=== PATIENT | female | born 1940 | race Caucasian/White ===

== ENCOUNTER 2023-11-20 17:54 | Observation (INO) | payer OTHER ==
[2023-11-20 18:04] VITALS: BMI 21.7
[2023-11-20] MEDS ORDERED: ACETAMINOPHEN INJECTION 100 ML IVPB ONE (19:56)
[2023-11-20] MEDS: ACETAMINOPHEN 1000 MG/100 ML BAG IVPB ONE (20:09)
[2023-11-20 20:23] LABS: BASO % 0.7 % (0-2.0); EOS % 0.7 % (0-4.5); HEMOGLOBIN 11.1 GM/dL (10.7-15.3); LYMPH % 18.7 % (8-40); MCH 27.7 pg (25.7-33.7); MCHC 33.6 g/dl (32.0-36.0); MEAN CELL VOLUME 82.6 fl (80-96); MEAN PLT VOLUME 6.8 fl (7.5-11.1); MONO % 13.5 % (3.8-10.2); NEUT % 66.4 % (42.8-82.8); PLATELET COUNT 311 10^3/uL (134-434); RDW 16.4 % (11.6-15.6); WHITE BLOOD COUNT 7.9 K/mm3 (4.0-10.0)
[2023-11-20 20:31] LABS: INR 1.12 (0.83-1.09); PROTHROMBIN TIME (PATIENT) 12.6 SEC (9.7-13.0)
[2023-11-20 20:33] LABS: ACTIVATED PTT 30.1 SECONDS (25.2-36.5)
[2023-11-20 20:42] LABS: ALBUMIN 2.9 g/dl (3.4-5.0); CALCIUM 8.8 mg/dL (8.5-10.1)
[2023-11-20 20:43] LABS: BLOOD UREA NITROGEN 21.2 mg/dL (7-18)
[2023-11-20 20:45] LABS: CREATININE 0.9 mg/dL (0.55-1.3)
[2023-11-20 20:47] LABS: BILIRUBIN,TOTAL 0.8 mg/dL (0.2-1); TOT PROT 6.6 g/dl (6.4-8.2)
[2023-11-20 22:12] LABS: ERYTHROCYTE SEDIMENTATION RATE 93 mm/hr (0-30)
[2023-11-20] MEDS ORDERED: LIDOCAINE HCL 1%, 10 MG/ML (20ML VIAL) ONE (22:28)
[2023-11-20] MEDS: LIDOCAINE HCL 1%, 10 MG/ML (50 mL VIAL) SQ ONE (22:35)
[2023-11-21 00:01] LABS: BF WBC & OTHER NUCLEATED CELLS 3976 /mm3
[2023-11-21 00:46] LABS: BODY FLUID MONOCYTE 12 %
[2023-11-21 00:48] LABS: CRYSTALS,SYNOVIAL FLUID NEGATIVE
[2023-11-21] MEDS ORDERED: PATIENT'S OWN MEDICATION (NON-FORMULARY) (Valsartan/Hydrochlorothiazide [Valsartan-Hctz 80 PO SCH (03:24)
[2023-11-21] MEDS: VALSARTAN 80 MG TABLET PO SCH (05:36)
[2023-11-21] MEDS: HYDROCHLOROTHIAZIDE 12.5 MG CAPSULE (FP) PO SCH (05:36)
[2023-11-21] MEDS: amLODIPine BESYLATE 5 MG TABLET (FP) PO ONE (05:37)
[2023-11-21] MEDS: CARBIDOPA/LEVODOPA 25/100 TABLET (FP) PO SCH (05:37)
[2023-11-21 08:35] LABS: HEMATOCRIT 34.4 % (32.4-45.2); HEMOGLOBIN 11.5 GM/dL (10.7-15.3); MCH 27.7 pg (25.7-33.7); MCHC 33.3 g/dl (32.0-36.0); MEAN CELL VOLUME 83.2 fl (80-96); MEAN PLT VOLUME 7.1 fl (7.5-11.1); PLATELET COUNT 333 10^3/uL (134-434); RBC 4.13 M/mm3 (3.60-5.2); WHITE BLOOD COUNT 6.4 K/mm3 (4.0-10.0)
[2023-11-21 08:54] LABS: CHLORIDE 100 mmol/L (98-107); POTASSIUM 3.3 mmol/L (3.5-5.1); SODIUM 139 mmol/L (136-145)
[2023-11-21 09:07] LABS: ALBUMIN 3.1 g/dl (3.4-5.0); ANION GAP 9 mmol/L (4-13); CALCIUM 9.1 mg/dL (8.5-10.1); CO2 30 mmol/L (21-32); GLUCOSE,RANDOM 93 mg/dL (74-106); MAGNESIUM 2.4 mg/dL (1.8-2.4)
[2023-11-21 09:08] LABS: BLOOD UREA NITROGEN 15.8 mg/dL (7-18)
[2023-11-21 09:10] LABS: CREATININE 0.8 mg/dL (0.55-1.3)
[2023-11-21 09:11] LABS: SGOT/AST 21 U/L (15-37)
[2023-11-21 09:12] LABS: BILIRUBIN,TOTAL 1.1 mg/dL (0.2-1); TOT PROT 7.5 g/dl (6.4-8.2)
[2023-11-21 09:13] LABS: ALK PHOS 70 U/L (45-117)
[2023-11-21 09:26] LABS: SGPT/ALT < 6 U/L (13-61)
[2023-11-21] MEDS: VALSARTAN 80 MG TABLET PO ONE (15:16)
[2023-11-21] MEDS: POTASSIUM CHLORIDE ORAL LIQUID 20 MEQ/15 ML PO ONE (18:03)
[2023-11-21] MEDS: ATORVASTATIN CA 40 MG TABLET (FP) PO SCH (21:27)
[2023-11-22 00:45] VITALS: RESP 18
[2023-11-22] MEDS: amLODIPine BESYLATE 5 MG TABLET (FP) PO SCH (07:25)
[2023-11-22 07:52] LABS: BASO % 1.1 % (0-2.0); EOS % 2.2 % (0-4.5); HEMATOCRIT 35.2 % (32.4-45.2); HEMOGLOBIN 11.7 GM/dL (10.7-15.3); LYMPH % 30.5 % (8-40); MCH 27.9 pg (25.7-33.7); MCHC 33.1 g/dl (32.0-36.0); MEAN CELL VOLUME 84.3 fl (80-96); MONO % 11.9 % (3.8-10.2); NEUT % 54.3 % (42.8-82.8); PLATELET COUNT 316 10^3/uL (134-434); RBC 4.18 M/mm3 (3.60-5.2); RDW 15.8 % (11.6-15.6); WHITE BLOOD COUNT 5.1 K/mm3 (4.0-10.0)
[2023-11-22 08:03] LABS: CHLORIDE 105 mmol/L (98-107); POTASSIUM 4.5 mmol/L (3.5-5.1); SODIUM 141 mmol/L (136-145)
[2023-11-22 08:10] LABS: CALCIUM 9.3 mg/dL (8.5-10.1); CREATININE 0.8 mg/dL (0.55-1.3)
[2023-11-22 08:11] LABS: ALBUMIN 2.9 g/dl (3.4-5.0); ANION GAP 7 mmol/L (4-13); CO2 29 mmol/L (21-32); GLUCOSE,RANDOM 84 mg/dL (74-106)
[2023-11-22 08:12] LABS: BILIRUBIN,TOTAL 0.9 mg/dL (0.2-1)
[2023-11-22 08:14] LABS: ALK PHOS 60 U/L (45-117); MAGNESIUM 2.4 mg/dL (1.8-2.4); SGOT/AST 23 U/L (15-37)
[2023-11-22 08:15] LABS: BLOOD UREA NITROGEN 15.8 mg/dL (7-18)
[2023-11-22 08:16] LABS: SGPT/ALT < 6 U/L (13-61)
[2023-11-22] MEDS: VALSARTAN 160 MG TABLET PO SCH (08:29)
[2023-11-22] MEDS: HYDROCHLOROTHIAZIDE 12.5 MG CAPSULE (FP) PO SCH (08:34)
[2023-11-22] MEDS ORDERED: REGADENOSON 0.4 MG/5 ML PRE-FILLED SYRINGE IVPUSH ONE (09:26)
[2023-11-22] MEDS ORDERED: VALSARTAN 80 MG TABLET PO SCH (10:00)
[2023-11-22] MEDS: REGADENOSON 0.4 MG/5 ML PRE-FILLED SYRINGE IVPUSH ONE (11:20)
[2023-11-22 14:38] VITALS: TEMP 98.8
[2023-11-22] MEDS: amLODIPine BESYLATE 10 MG TABLET (FP) PO ONE (15:30)
[2023-11-22 17:19] VITALS: BP 125/62; PULSE 72
== END 2023-11-22 17:29 | disposition home or self-care (01) ==
LOC: JER 17:54 → JERBED 11-21 01:55 → J4S 11-21 03:40
PROVIDERS: ADMIT Internal Medicine; ATTEND Internal Medicine
PROC: 0S9D3ZZ Drainage of Left Knee Joint, Percutaneous Approach (ICD-10-PCS; principal; 2023-11-21)
PROC: 3E033NZ Introduction of Analgesics, Hypnotics, Sedatives into Peripheral Vein, Percutaneous Approach (ICD-10-PCS; 2023-11-21)
PROC: 3E033GC Introduction of Other Therapeutic Substance into Peripheral Vein, Percutaneous Approach (ICD-10-PCS; 2023-11-21)
DX: M13.10 Monoarthritis, not elsewhere classified, unspecified site (principal); R07.89 Other chest pain; E78.5 Hyperlipidemia, unspecified; G20.A1 Parkinson's disease without dyskinesia, without mention of fluctuations; I10 Essential (primary) hypertension; F02.80 Dementia in other diseases classified elsewhere, unspecified severity, without behavioral disturbance, psychotic disturbance, mood disturbance, and anxiety; G89.29 Other chronic pain
CPT/HCPCS: 20610; 36415; 71045-TC-FY; 71275-TC; 73560-TC-LT-FY; 73610-TC-LT-FY; 78452-TC; 80053; 82180; 83735; 84443; 84484; 85025; 85027; 85379; 85610; 85651; 85730; 86038; 86140; 86618; 87040; 87070; 87075; 87205; 89060; 93005; 93010; 93017; 93306-TC; 93880-TC; 93971-TC; 96374; 96375; 99285-25; A9502; G0378; J0131; J2785; Q9967